=== PATIENT | male | born 1995 | race Caucasian/White ===

== ENCOUNTER 2016-09-10 11:13 | Emergency (ER) | payer OTHER ==
[2016-09-10 11:34] VITALS: RESP 16; TEMP 98.8
[2016-09-10] MEDS ORDERED: KETOROLAC 30 MG/1 ML SDV IM ONE (12:28)
--- NOTE | 2016-09-10 12:29 | UCPHY ---
H & P Time Seen by Provider: 09/10/16 12:19 Patient Type: New HPI/ROS: CHIEF COMPLAINT: Shoulder injury HISTORY OF PRESENT ILLNESS: 21-year-old male reports that he was playing when he dislocated his left shoulder. He states this has happened before. Shoulder was relocated by friends. Presents today reporting ongoing discomfort in the shoulder and concerns regarding the injury. No numbness or tingling in the arm. No injury to the head, neck, wrist, elbow. REVIEW OF SYSTEMS: Aside from elements discussed in the HPI, a comprehensive 10-point review of systems was reviewed and is negative. PAST MEDICAL HISTORY: Shoulder dislocation. Tear in the AC ligament SOCIAL HISTORY: Occasional smoker. GENERAL APPEARANCE: Pleasant, alert, reports some discomfort with movement of the left shoulder. FOCUSED EXAM OF extremities: mild swelling is present over the left shoulder. Normal contours. No dislocation evident. Minimal tenderness at the AC joint. Pain with internal and external rotation. Limited abduction, flexion, extension. Normal deltoid sensation. Distal radial pulse and ulnar pulse are intact. Good capillary refill. Neurovascular exam: Good capillary refill, normal motor exam, normal neurologic exam. Smoking Status: Light smoker Constitutional: Initial Vital Signs Temperature (C) 37.1 C 09/10/16 11:20 Heart Rate 108 H 09/10/16 11:20 Respiratory Rate 16 09/10/16 11:20 Blood Pressure 170/87 H 09/10/16 11:20 O2 Sat (%) 98 09/10/16 11:20 O2 Delivery Mode Room Air Allergies/Adverse Reactions: No Known Allergies Allergy (Unverified 07/03/09 22:01) Home Medications: Medication Instructions Recorded None 07/03/09 Hydrocodone/APAP 5/325 [[place] 1 tab PO Q6H PRN #10 tab 09/10/16 5/325 (RX)] MDM/Departure - MDM Imaging Results: Xray: Left shoulder x-ray was obtained. I viewed the images myself on the PACS system. My interpretation of the images is: No fracture noted, normal alignment, no dislocation. The radiology interpretation is: Pending. I discussed the results with the patient. Medications Given: Discontinued Medications Ibuprofen (Motrin) 400 mg PO EDNOW ONE Stop: 09/10/16 12:35 Last Admin: 09/10/16 12:43 Dose: 400 mg Ibuprofen (Motrin) 200 mg PO EDNOW ONE Stop: 09/10/16 12:35 Last Admin: 09/10/16 12:43 Dose: 200 mg Ketorolac Tromethamine (Toradol) 60 mg IM EDNOW ONE Stop: 09/10/16 12:29 Last Admin: 09/10/16 12:34 Dose: Not Given ED Course/Re-evaluation: Patient was provided a sling and ice. He was instructed regarding appropriate immobilization, early range of motion, ibuprofen. He was given referral to Orthopedic surgery for further evaluation of his persistent shoulder pain following reduction. Differential Diagnosis: Differential diagnosis for the patient's injury was considered including but not limited to contusion, abrasion, laceration, fracture, open fracture, or dislocation. - Depart Disposition: Home, Routine, Self-Care Clinical Impression: History of dislocation of shoulder, Shoulder pain, left Condition: Good Instructions: Shoulder Dislocation (ED), Early Postoperative or Post Injury Shoulder Exercises (ED) Additional Instructions: Please wear the sling until you are re-evaluated by the orthopedic surgeon. You may take your arm out of the sling and perform gentle shoulder mobilization exercises as provided. Mainstay of therapy is rest, ice, immobilization, elevation, and nonsteroidal anti-inflammatories for pain and to decrease swelling. Apply ice for 20-30 minutes every 2-3 hours for the next 48 hours. I recommend Ibuprofen (Motrin, Advil) or Naproxen Sodium (Aleve) for pain and anti-inflammatory effects. You may take either one, but do not take both. Your dose is: Ibuprofen 600 mg every 6-8 hours with food. OR Naproxen Sodium (Aleve) 220 mg every 12 hours. Okay to use hydrocodone as needed for severe pain. Followup with either Dr. Spring or Dr. Thomas. Prescriptions: Hydrocodone/APAP 5/325 [[place] 5/325 (RX)] 1 tab PO Q6H PRN #10 tab PRN Reason: Pain Referrals: NONE *PRIMARY CARE P,. [Primary Care Provider] - As per Instructions Corky Spring MD [Medical Doctor] - As per Instructions (Follow up within a week) - PQRS PQRS Measurement: Not applicable
[2016-09-10] MEDS ORDERED: IBUPROFEN 200 MG TAB PO ONE ×2 (12:34)
[2016-09-10 12:44] VITALS: BP 133/80; PULSE 94; O2SAT 94
== END 2016-09-10 12:45 | disposition home or self-care (01) ==
LOC: CED 11:13
DX: M25.512 Pain in left shoulder (principal); Z87.39 Personal history of other diseases of the musculoskeletal system and connective tissue
CPT/HCPCS: 73030; 99202; L3670; G0463-PO

== ENCOUNTER 2018-02-09 19:25 | Emergency (ER) | payer OTHER ==
[2018-02-09] MEDS ORDERED: DIAZEPAM 5 MG TAB PO ONE (20:22)
--- NOTE | 2018-02-09 22:33 | EDPHY ---
H & P Time Seen by Provider: 02/09/18 19:33 HPI/ROS: CHIEF COMPLAINT: Left shoulder pain HISTORY OF PRESENT ILLNESS: Patient is a 23-year-old male who was rock climbing and dislocated his left shoulder. He reports that this is happened approximately 4 times previously. Denies any numbness or tingling. There was no trauma to the shoulder. REVIEW OF SYSTEMS: Constitutional: No fever, no chills. Eyes: No discharge. ENT: No sore throat. Cardiovascular: No chest pain, no palpitations. Respiratory: No cough, no shortness of breath. Gastrointestinal: No abdominal pain, no vomiting. Genitourinary: No hematuria. Musculoskeletal: No back pain. Skin: No rashes. Neurological: No headache. Smoking Status: Current some day smoker Physical Exam: General Appearance: Alert and no distress. Eyes: Pupils equal and round no injection. Respiratory: Chest is nontender, lungs are clear to auscultation. Cardiac: regular rate and rhythm. Gastrointestinal: Abdomen is soft and nontender, no masses, bowel sounds normal. Musculoskeletal: Neck is supple and nontender. Extremities deformity of the left shoulder with step-off at the glenohumeral joint. Neurovascular intact distal to left colon all humeral drain. Skin: No rashes or lesions. Constitutional: Initial Vital Signs Temperature (C) 37.0 C 02/09/18 19:27 Heart Rate 64 02/09/18 19:27 Respiratory Rate 18 02/09/18 19:27 Blood Pressure 164/99 H 02/09/18 19:27 O2 Sat (%) 99 02/09/18 19:27 O2 Delivery Mode Room Air Allergies/Adverse Reactions: No Known Allergies Allergy (Unverified 07/03/09 22:01) Home Medications: Medication Instructions Recorded NK [No Known Home Meds] 02/09/18 Medical Decision Making - Diagnostics Imaging Results: Imaging Impressions Shoulder X-Ray 02/09/18 19:32 Impression: Anterior shoulder dislocation. Shoulder X-Ray 02/09/18 21:50 Impression: Good anatomic reduction. No fracture. Procedures: I personally was able to relocate the left shoulder using in-line traction and scapular manipulation. He was anesthetized with intra-articular injection of the left shoulder joint with 10 cc of 0.25% bupivacaine. He is also given Valium for muscle relaxer. Differential Diagnosis: Fracture, dislocation, neurovascular injury, compartment syndrome - Data Points Medications Given: Discontinued Medications Diazepam (Valium) 5 mg PO EDNOW ONE Stop: 02/09/18 20:23 Last Admin: 02/09/18 20:38 Dose: 5 mg Departure - Departure Disposition: Home, Routine, Self-Care Clinical Impression: Recurrent dislocation, left shoulder Condition: Good Instructions: Shoulder Dislocation (ED) Additional Instructions: Please where the shoulder sling into the follow up with Orthopedics in the next 3-5 days. He have numbness, weakness or other worrisome symptoms return to the ER. Referrals: NONE *PRIMARY CARE P,. [Primary Care Provider] - As per Instructions Quan Amor MD [Medical Doctor] - As per Instructions
[2018-02-10 03:32] VITALS: BP 133/70
== END 2018-02-09 22:42 | disposition home or self-care (01) ==
PROC: 0RSKXZZ Reposition Left Shoulder Joint, External Approach (ICD-10-PCS; principal; 2018-02-09)
DX: S43.015A Anterior dislocation of left humerus, initial encounter (principal); X50.9XXA Other and unspecified overexertion or strenuous movements or postures, initial encounter; Y92.9 Unspecified place or not applicable; Y93.31 Activity, mountain climbing, rock climbing and wall climbing
CPT/HCPCS: A4565